=== PATIENT | male | born 1985 ===

== ENCOUNTER 2016-10-02 14:58 | Inpatient (IN) | payer BC ==
[~2016-10-02] VITALS: Ht 167.6 cm; Wt 64.7 kg
[2016-10-02 15:53] LABS: BASOPHIL % 0.1 % (0-2); PLATELET COUNT 207 x10^3mcL (130-400)
[2016-10-02 16:03] LABS: CALCIUM 9.5 mg/dL (8.5-10.1); CARBON DIOXIDE 15.2 mmol/L (21-32); CHLORIDE SERUM 97 mmol/L (98-107); CREATININE SERUM 1.1 mg/dL (0.7-1.3); GFR1 > 60 mL/min; GLUCOSE SERUM 90 mg/dL (74-106); POTASSIUM SERUM 3.3 mmol/L (3.5-5.1); SODIUM SERUM 138 mmol/L (136-145)
[2016-10-02 16:08] LABS: ALBUMIN 4.8 g/dL (3.4-5.0); ALKALINE PHOSPHATASE 85 U/L (46-116); ALT/SGPT 12 U/L (16-63); AMYLASE 87 U/L (25-115); AST/SGOT 14 U/L (15-37); BILIRUBIN TOTAL 0.9 mg/dL (0.20-1.00); LIPASE 75 IU/L (73-393); TOTAL PROTEIN, SERUM 7.7 g/dL (6.4-8.2)
[2016-10-02 17:29] LABS: UA SPECIFIC GRAVITY >=1.030 (1.005-1.035); microscopic required? YES; urine erythrocyte NEGATIVE (NEGATIVE)
[2016-10-02 17:46] LABS: AMPHETAMINE QUAL UR NONE DETECTED (NEG <=1000)
[2016-10-02 19:09] LABS: MAGNESIUM 1.9 mg/dL (1.8-2.4)
[2016-10-02 19:10] LABS: CHOLESTEROL/HDL RATIO 3.9
[2016-10-02 19:15] LABS: T3 TOTAL 0.96 ng/mL
[2016-10-02 19:29] LABS: FREE T4 1.53 ng/dL (0.76-1.46); FREE THYROXINE INDEX 3.9 ug/dL (1.4-4.5); T4(THYROXINE) 10.8 ug/dL (4.7-13.3)
[2016-10-02 20:04] VITALS: BP 103/41
[2016-10-02 20:09] VITALS: Ht 167.6 cm; Wt 64.7 kg
[2016-10-03 06:00] VITALS: BP 127/67
[2016-10-03 06:15] LABS: BASOPHIL % 0.2 % (0-2); PLATELET COUNT 200 x10^3mcL (130-400); RED CELL DISTRIBUTION WIDTH 13.3 % (11.5-14.5)
[2016-10-03 06:28] LABS: CALCIUM 8.5 mg/dL (8.5-10.1); CARBON DIOXIDE 15.6 mmol/L (21-32); CHLORIDE SERUM 102 mmol/L (98-107); GFR1 > 60 mL/min; GLUCOSE SERUM 90 mg/dL (74-106); MAGNESIUM 1.9 mg/dL (1.8-2.4); PHOSPHOROUS 3.7 mg/dL (2.5-4.9); POTASSIUM SERUM 3.9 mmol/L (3.5-5.1); SODIUM SERUM 138 mmol/L (136-145)
[2016-10-03 09:47] VITALS: BP 111/54
[2016-10-03 10:41] VITALS: BP 111/54
[2016-10-03] MEDS ORDERED: COLACE100 MG PO (11:19)
[2016-10-03] MEDS ORDERED: ACETAMINOPHEN-H1 TA1 PO (11:19)
[2016-10-03] MEDS ORDERED: ZOF4 PO (11:20)
== END 2016-10-03 12:09 | disposition home or self-care (01) | DRG 391 ==
LOC: ED 14:58 → DU 17:46
PROVIDERS: Emergency Medicine; ADMIT Family Medicine
DX: A08.4 Viral intestinal infection, unspecified (principal); N17.0 Acute kidney failure with tubular necrosis; E87.2 Acidosis; E87.6 Hypokalemia; F12.10 Cannabis abuse, uncomplicated; E83.39 Other disorders of phosphorus metabolism; E78.5 Hyperlipidemia, unspecified
CPT/HCPCS: 83880; 84439; 87046; 87046-59; G0480; J0500; J1630; J1885; J2060; J2405; J3480; J7030